=== PATIENT | female | born 1965 ===

== ENCOUNTER → 2017-08-03 | Day surgery (SDC) | payer OTHER ==
[~2017-08-03] VITALS: Ht 162.6 cm; Wt 106.6 kg
[~2017-08-03] MED LIST: ACETAMINOPHEN500 M4 PO; BIOTIN5000 MC1 PO; BYSTOLIC10 M1 PO; FISH OIL 1,0001 EAC5 PO; IBUPROFEN800 M1 PO; JANUMET 50-1,01 EACH PO; MAGNESIUM250 M3 PO; MULTIVITAMINS1 EAC9 PO; TELMISARTAN-HC1 EAC1 PO; VICTOZA 2-0.6 MG/0.1 SC; VITAMIN D1000 UNIT PO
--- NOTE | 2017-08-03 11:50 | Operative Report ---
Operative/Inv Procedure Report Surgery Date: 08/03/17 Name of Procedure: Excision right dorsal wrist ganglion on Soft tissue mass left shoulder 4.2 cm Pre-Operative Diagnosis: Soft tissue mass left shoulder ganglionic right wrist Post-Operative Diagnosis: Same Estimated Blood Loss: scant Surgeon/Roofer Helper: Jayden VASQUEZ,Fareed Vale Anesthesia: laryngeal mask airway Operative/Procedure Note Note: Patient was counseled regards the procedure the alternatives the risks and expected outcomes as relates to her request for surgical intervention to treat symptomatic masses of the dorsal right wrist and left shoulder deltoid region. We talked about recurrence infection pain bleeding numbness definitely visible scarring possibly unsightly or symptomatic especially involving the left deltoid. The patient understood these risks and signed informed consent. She was taken to the operating room and placed supine on the table. Venodyne boots were placed and general anesthesia was established intravenous antibiotics given. A transverse incision was made overlying the dorsal right wrist mass and it was dissected free from the surrounding tissue down to the capsule where it was completely excised. Wound was irrigated and closed in multiple layers. Attention then turned to the left deltoid region where a transverse incision was made overlying the soft tissue mass. This was dissected down deeply and found to be clinically consistent with a lipoma portion of which was sent for pathologic analysis. The wound was closed in layers after irrigation and hemostasis. Steri-Strips applied.
== END ==
LOC: STS 01:42
DX: D21.12 Benign neoplasm of connective and other soft tissue of left upper limb, including shoulder (principal); M67.431 Ganglion, right wrist; E11.9 Type 2 diabetes mellitus without complications; Z79.84 Long term (current) use of oral hypoglycemic drugs; I10 Essential (primary) hypertension
CPT/HCPCS: J0131; J0690; J2250